=== PATIENT | female | born 1990 | race Two or more races ===

== ENCOUNTER 2023-02-02 09:13 | Emergency (ER) | payer MEDICAID, SELFPAY ==
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
[2023-02-02 09:21] VITALS: BP 118/63; PULSE 88; RESP 16; TEMP 36.9; O2SAT 100; BMI 22.4
[2023-02-02 11:35] LABS: UPreg QC Valid YES; Urine Pregnancy NEGATIVE (NEGATIVE)
[2023-02-02] MEDS: oxyCODONE HCl Immed Release 5 MG TABLET PO (11:35)
--- NOTE | 2023-02-02 11:36 | PC.NURSE ---
urine obtained, pt medicated for 9/10 pain per order
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
--- NOTE | 2023-02-02 11:57 | PC.NURSE ---
pt to radiologoy
[2023-02-02 13:16] VITALS: BP 109/66; PULSE 81; RESP 16; O2SAT 100
== END 2023-02-02 13:52 | disposition home or self-care (01) ==
PROVIDERS: Emergency Provider Emergency Medicine
DX: S00.431A Contusion of right ear, initial encounter (principal); S22.31XA Fracture of one rib, right side, initial encounter for closed fracture; Y04.2XXA Assault by strike against or bumped into by another person, initial encounter; Y93.9 Activity, unspecified; Y92.9 Unspecified place or not applicable; Y99.9 Unspecified external cause status
CPT/HCPCS: 70450; 71101; 81025; 99283; 99284